=== PATIENT | male | born 1950 | race Caucasian/White ===

== ENCOUNTER 2023-05-09 21:18 | Inpatient (IN) | payer MEDICARE, SELFPAY ==
[2023-05-09] VITALS (7 sets, daily range): BP systolic 104–143; BP diastolic 51–74; BMI 41.7; BMI 40.5
[2023-05-09 17:32] LABS: % Basophils 0.4 % (0-2); % Eosinophils 1.2 % (0-6); % Immature Granulocytes 0.7 % (0-0.5); % Lymphocytes 12.5 % (20.5-51.1); % Monocytes 8.3 % (1.7-9.3); % Neutrophils 76.9 % (42.2-75.2); Absolute Eosinophils 0.1 10^3/uL (0-0.7); Absolute Immature Granulocytes 0.1 10^3/uL (0-0.05); Absolute Lymphocytes 1.3 10^3/uL (1.2-3.4); Absolute Monocytes 0.9 10^3/uL (0.1-0.6); Hematocrit 26.8 % (39.0-52.0); Hemoglobin 8.8 g/dL (13.0-18.0); Mean Corp Hgb Conc. 32.8 g/dL (33.0-37.0); Mean Corpuscular Hgb 27.4 pg (27.0-31.0); Mean Corpuscular Volume 83.5 fL (80.0-94.0); Mean Platelet Volume 8.5 fL (7.4-10.4); Nucleated Red Blood Cells % 0 % (-); Platelet Count 261 10^3/uL (130-400); Red Blood Cell Count 3.21 10^6/uL (4.70-6.10); Red Cell Dist. Width 14.8 % (11.5-14.5); White Blood Cell Count 10.4 10^3/uL (4.8-10.8)
[2023-05-09 17:47] LABS: ALT (SGPT) 18 U/L (0-50); AST (SGOT) 27 U/L (17-59); Albumin 3.4 g/dl (3.5-5.0); Alkaline Phosphatase 96 U/L (38-126); Blood Urea Nitrogen 22 mg/dl (9-20); Calcium 8.8 mg/dl (8.4-10.2); Carbon Dioxide 26 mmol/L (22-30); Chloride 100 mmol/L (98-107); Estimated Creatinine Clearance 98 ml/min; Glucose 105 mg/dl (70-99); Sodium 135 mmol/L (135-145); Total Protein 6.2 g/dl (6.3-8.2); eGFR > 60.00
[2023-05-09] MEDS: TYLENOL 650 MG PO (18:18)
--- NOTE | 2023-05-09 18:22 | ED.GENMED ---
History of Present Illness
General
Chief Complaint: Fall
Source: patient and family
Exam Limitations: none
Time Seen by Provider: 05/09/23 17:57
Nursing documentation reviewed up to this point in time: agreed with
Travel History
Have you had any contact with someone who has COVID-19?: No
Do you have any symptoms of coronavirus? Fever > 100 degrees, chills, cough, shortness of breath, sore throat, loss of taste or smell, muscle aches, or headache?: No
History of Present Illness
History of Present Illness:
72-year-old male presents with multiple issues, he has A-fib he is on Eliquis few weeks ago underwent bilateral knee replacement at orthopedics, was admitted then went to [facility] rehab was doing okay recovering slowly does have home PT
apparently possibly injured his knee yesterday with aggressive PT, today felt weak went down to his knees, no head strike prior to that he took tramadol and Flexeril as prescribed had been using very much of it, family is worried about his level of
confusion they state he looks short of breath or concerned about caring for him at home and think that he may require rehab again no fevers no drainage from his wounds,
Past History
Past History
ED Past Medical History: Arrthythmia
ED Past Surgical History: Orthopedic
Social History
Tobacco: Non-smoker
Alcohol: None
Drug: None
Personal:
Living: with family
Employment: Retired
Review of Systems
Review of Systems
All Other Systems: Not applicable
Constitutional: Denies fever or fatigue
EENT: Reports no symptoms
Respiratory: Reports trouble breathing
Cardiac: Reports no symptoms
ABD/GI: Reports no symptoms
: Reports frequency and incontinence
Musculoskeletal: Reports joint pain
Neurological: Reports weakness
Endocrine: Reports no symptoms
Phy Exam
Physical Exam
Physical Exam:
Physical Exam
General: 72 male nontoxic-appearing
Neck: No tongue bite, no posterior
Heart: Regular with soft murmur
Lungs: Bibasilar
Abdomen: Nontender
Neuro: alert and oriented
Skin: no rash
Psychiatric: Cooperative
Extremities: Bilateral knees surgical sites clean dry and intact mild swelling no open wounds is able to flex and extend his knee
Course
Orders/Labs/Results
Orders:
Orders
05/09/23 17:23
CMP [Comprehensive Metabolic Panel] Urgent
Complete Blood Count/With Diff Urgent
NT-proBNP Urgent
Comment: ADD ON
05/09/23 18:08
CT Head W/o Iv Contrast Urgent
Comment:
Reason For Exam: confusioni [email or web address]
CR Chest - 2 Views Urgent
Comment:
Reason For Exam: sob
Knee, Left 1 or 2 Views [CR Knee - Left 1 Or 2 Views] Urgent
Comment:
Reason For Exam: fall
Knee, Right 1 or 2 Views [CR Knee - Right 1 Or 2 Views] Urgent
Comment:
Reason For Exam: fall
05/09/23 18:09
Add On- LAB Urgent
Tests Added?: pbnp
Electrocardiogram (*1) Urgent
Reason for Study: Palpitations
EKG- Treatment ONCE
Acetaminophen [Tylenol] 650 mg PO NOW STA
05/09/23 19:03
Urinalysis Reflex To Culture Urgent
Date Specimen was Collected: 05/09/23
Time Specimen was Collected: 18:50
Urine Microscopic Reflex Cult Urgent
Urine Culture Urgent
AIDE Source: U
Specimen Description:
Date Specimen was Collected: 05/09/23
Time Specimen was Collected: 18:50
05/09/23 19:46
Bumetanide [Bumex] 1 mg IV NOW STA
03/09/24 19:49
Case Management Consult ONCE
Case Management Consult: Discharge Planning
05/10/23 06:00
Physical Therapy Consult [Pt Eval And Treat] IN AM
Activity Level: Out of Bed-Early Mobility
Abnormal Lab Results
05/09/23 05/09/23
17:23 19:03
RBC 3.21 L 10^6/uL
(4.70-6.10)
Hgb 8.8 L g/dL
(13.0-18.0)
Hct 26.8 L %
(39.0-52.0)
MCHC 32.8 L g/dL
(33.0-37.0)
RDW 14.8 H %
(11.5-14.5)
Abs Immat Gran (auto) 0.1 H 10^3/uL
(0-0.05)
Absolute Neuts (auto) 8.0 H 10^3/uL
(1.4-6.5)
Absolute Monos (auto) 0.9 H 10^3/uL
(0.1-0.6)
Immature Gran % 0.7 H %
(0-0.5)
Neutrophils % 76.9 H %
(42.2-75.2)
Lymphocytes % 12.5 L %
(20.5-51.1)
BUN 22 H mg/dl
(9-20)
Glucose 105 H mg/dl
(70-99)
Total Protein 6.2 L g/dl
(6.3-8.2)
Albumin 3.4 L g/dl
(3.5-5.0)
Urine Ketones Trace A
(Negative)
Ur Occult Blood Reflex 2+ A
(Negative)
Urine Bilirubin 1+ A
(Negative)
Urine Urobilinogen 2+ A
(Neg - 1+)
Leukocyte Esterase Rfl 1+ A
(Negative)
05/09/23 17:23
05/09/23 17:23
Vital Signs
Initial and Last Documented VS:
Initial Vital Signs
Temp Pulse Resp BP Pulse Ox
98.2 F 78 18 131/74 99
05/09/23 17:08 05/09/23 17:08 05/09/23 17:08 05/09/23 17:08 05/09/23 17:08
Last Documented Vital Signs
Temp Pulse Resp BP Pulse Ox
98.2 F 77 18 136/71 98
05/09/23 17:08 05/09/23 19:45 05/09/23 19:45 05/09/23 18:00 05/09/23 19:30
MDM/Problems Addressed
Differential Diagnosis Includes:
Deconditioning, occult fracture UTI stroke symptomatic anemia heart failure
MDM/Problems Addressed:
Trouble walking
Chronic conditions affecting care: Arrhythmia
Acute Exacerbation and/or Progression of Chronic Illness:
Orthopedic surgery
Acute Exacerbation and/or Progression of Chronic Illness: Arrhythmia
*Radiology
Radiology exam reviewed: preliminary read by ED provider
*Pulse Oximetry
Patient hypoxic: no
*Critical Care Note
Total Time (30-74mins, 75-104mins- exclusive of procedures): Not Applicable
Update Note
Update Note:
7:20 PM labs noted chest x-ray noted proBNP noted does have a murmur will give IV diuretic takes Bumex at home will admit will need PT and case management
7:45 PM labs reviewed with family clinical reviewed with family they state his baseline hemoglobin is 10 he goes to urology and cardiology at [facility], he has an appointment Thursday with Dr. Young from [facility]
ED Attending Note
-
Portions of this chart may have been created with voice recognition software.� Occasional wrong word or��sound alike� substitutions may have occurred due to the inherent limitations of voice recognition software.
Discharge Plan
Departure
Patient Disposition: Admit
Date of Disposition: 05/09/23
Time of Disposition: 19:19
Presentation/result/management discussed w/ accepting MD/DO: Hospitalist
Patient with high blood pressure during this ER visit?: Yes
Condition: Fair
Discharge Problem:
CHF (congestive heart failure)
Prescriptions:
No Action
multivitamin Tablet
1 tab PO DAILY
atorvastatin 10 mg tablet
10 mg PO QPM
valsartan 80 mg tablet
80 mg PO DAILY
omeprazole 40 mg capsule,delayed release(DR/EC)
40 mg PO DAILY
tramadol 50 mg tablet
50 mg PO Q6H PRN (Reason: moderate pain)
Patient Comments:
05/09/2023: last filled 08/20/22, 28 tabs for 7 days from [facility]
acetaminophen 500 mg Tablet
1,000 mg PO Q6H PRN (Reason: mild pain)
ascorbic acid (vitamin C) [Vitamin C] 500 mg Tablet
500 mg PO DAILY
tamsulosin 0.4 mg capsule
0.4 mg PO QPM
oxybutynin chloride 5 mg tablet extended release 24hr
5 mg PO QPM
bumetanide 1 mg tablet
1 mg PO DAILY
metoprolol succinate 25 mg tablet extended release 24 hr
25 mg PO DAILY
cyclobenzaprine 5 mg tablet
5 mg PO BID PRN (Reason: muscle spasms)
desvenlafaxine succinate 100 mg tablet extended release 24 hr
100 mg PO DAILY
Myrbetriq 50 mg tablet extended release 24 hr
50 mg PO QPM
Eliquis 5 mg tablet
5 mg PO BID
cranberry
2 tab PO BID
Referrals:
UNKNOWN - PT NOT,INTERVIEWE [Family Provider] -
Interventions
Interventions:
*Risk Screen - Suicide Last Done: 05/09/23 17:15
*General Assessment Last Done: 05/09/23 17:15
*Neglect/Abuse Screening Last Done: 05/09/23 17:15
*ED COVID-19 Vaccine History Last Done: 05/09/23 17:15
ED-Musculoskeletal Assessment Last Done: 05/09/23 17:16
ED- Neurological Assessment Last Done: 05/09/23 17:16
ED-Skin Assessment Last Done: 05/09/23 17:16
[2023-05-09 18:55] LABS: NT-proBNP 2150 pg/ml
[2023-05-09 19:35] LABS: Urine Albumin Trace (Neg - Trace); Urine Bilirubin 1+ (Negative); Urine Color Yellow; Urine Glucose Negative (Negative); Urine Ketone Trace (Negative); Urine Leukocyte 1+ (Negative); Urine Nitrite Negative (Negative); Urine Occult Blood 2+ (Negative); Urine Specific Gravity 1.015 (<1.030); Urine Urobilinogen 2+ (Neg - 1+)
[2023-05-09 19:36] LABS: Urine Character Slightly Cloudy (Clear)
--- NOTE | 2023-05-09 20:03 | HPS.HSE ---
Family Physician
-
Family Physician: INTERVIEWE UNKNOWN - PT NOT
Chief Complaint
-
Generalized weakness, shortness of breath and bilateral lower extremity edema
History of Present Illness
72-year-old male with known history of A-fib, congestive heart failure unknown type, hypertension, who had recently bilateral knee replaced in [facility] and was sent to rehab, look-alike today when he woke up he was feeling little
lousy according to the but patient said he was feeling at his usual self, at home physical therapy for his knee, according to the patient he may be was too aggressive today than the usual, shortly after he felt very weak and lousy and lethargic
and she described that he ran out of the fall and look like he buckle on his knee hitting both knees to the ground, denies any fever or chill or cough or congestion, admit is confirmed with the family short of breath worse with any kind of
exertional activity and have gross lower extremity edema he is wearing tight stocking and have more swelling around both knee and thigh especially around the right knee, also have some redness around the right knee which is according to the family
is new compared to earlier in the day and then awake.
Looks mildly confused and delirious but he takes Flexeril and tramadol earlier in the day.
Admits poor appetite and drink regular amount of fluid, and according to the family preoperatively his weight down to around 248 but now is running around 278.
In the ER given a dose of Bumex, and he never been here within of the baseline and the family does not know his baseline of blood work as well as CHF status. His hemoglobin around 8.8.
He is awake, alert answer question properly with some pauses claiming that sometime since her may not be 100% accurate. , daughter and [id number] at the bedside.
His condition discussed with the ER physician.
Medical History
Past Medical History
Past Medical History: Reports Other
Additional Past Medical History:
Past medical history reviewed:
Hypertension
A-fib
Urinary incontinence
Osteoarthritis status post recent bilateral knee replacement
CHF, unknown type
Ambulatory dysfunction
Obesity.
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
Past Surgical History: Reports Other
Social History
Unable to obtain full social history at this time due to: Other
Family History
Family History: Other
Allergies / Home Medications
Allergies reflects when Allergies were last updated in [facility].
Home Medications with original date entered in [facility]
Allergy/Medication List:
Allergies
Allergy/AdvReac Type Severity Reaction Status Date / Time
clindamycin Allergy Rash Verified 05/09/23 17:07
Penicillins Allergy Rash Verified 05/09/23 17:07
Home Medications
acetaminophen 500 mg tablet 1,000 mg PO Q6H PRN mild pain 05/09/23
apixaban 5 mg tablet (Eliquis) 5 mg PO BID 05/09/23
ascorbic acid (vitamin C) 500 mg tablet (Vitamin C) 500 mg PO DAILY 05/09/23
atorvastatin 10 mg tablet 10 mg PO QPM 05/09/23
bumetanide 1 mg tablet 1 mg PO DAILY 05/09/23
cranberry 2 tab PO BID 05/09/23
cyclobenzaprine 5 mg tablet 5 mg PO BID PRN muscle spasms 05/09/23
desvenlafaxine succinate 100 mg tablet,extended release 24 hr 100 mg PO DAILY 05/09/23
metoprolol succinate 25 mg tablet,extended release 24 hr 25 mg PO DAILY 05/09/23
mirabegron 50 mg tablet,extended release 24 hr (Myrbetriq) 50 mg PO QPM 05/09/23
multivitamin 1 tab PO DAILY 05/09/23
omeprazole 40 mg capsule,delayed release 40 mg PO DAILY 05/09/23
oxybutynin chloride 5 mg tablet,extended release 24 hr 5 mg PO QPM 05/09/23
tamsulosin 0.4 mg capsule 0.4 mg PO QPM 05/09/23
tramadol 50 mg tablet 50 mg PO Q6H PRN moderate pain 05/09/23
valsartan 80 mg tablet 80 mg PO DAILY 05/09/23
Review of Systems
-
A 12 point ROS was completed and negative except as noted: Yes
Physical Exam
Vital Signs
Vital Signs
Temp Pulse Resp BP Pulse Ox
98.2 F 77 18 136/71 98
05/09/23 17:08 05/09/23 19:45 05/09/23 19:45 05/09/23 18:00 05/09/23 19:30
Physical exam:
General: Lethargic, mildly confused and delirious but oriented x3, not in distress and holds appropriate conversation.
HEENT: No active discharge, ecchymosis or bruising, moist lips, tongue and mucous membrane.
Eyes: No discharge or red conjunctiva, no nystagmus, pupils are reactive and equal
Neck:Supple, no JVD no bruit no goiter.
Respiratory: Normal AP contour and diameter, normal chest wall movement, normal respiratory effort, no respiratory distress,
Lungs: Good air entry bilaterally, no wheezing or rhonchi, no rales or crackles
Heart: S1, S2 regular, normal rate, systolic murmur in upper borders
Gastrointestinal: Positive bowel sounds, soft, nontender, no guarding or rigidity or organomegaly
Musculoskeletal: Incision on both knee, both he looks little red and warm specially the right 1 the area of redness is bigger specially laterally with growth swelling and edema around both knees specially the right knee and both thighs.
, no chest wall abnormality or tenderness. All joints and extremities have good range of motion, no muscle tenderness or any joint swelling or tenderness.
Extremities: Gross lower extremities pitting edema, good peripheral pulses, good range of motion
Skin: Warm and dry, no ulceration, normal color.
Neurological: Mildly confused, and delirious but oriented x3, no facial droop,, speech clear and comprehensive, good muscle tone, normal sensory and motor function
Psychiatric: Normal mood, normal thought and judgment, normal affect,
Physical Exam
General: Other
Laboratory Results
-
05/09/23 17:23
05/09/23 17:23
Laboratory Results
Total Bilirubin 1.0 mg/dl (0.2-1.3) 05/09/23 17:23
AST 27 U/L (17-59) 05/09/23 17:23
ALT 18 U/L (0-50) 05/09/23 17:23
Alkaline Phosphatase 96 U/L (38-126) 05/09/23 17:23
Right knee x-ray:
AP and shoot through lateral views were performed.
There is a large amount of generalized soft tissue swelling. No subcutaneous emphysema. No radiopaque foreign body. No periosteal reaction. No radiographic evidence to suggest osteomyelitis.
Findings suggest small suprapatellar effusion.
Orthopedic hardware related to previous total knee replacement appears intact and well-seated.
However, superior positioning of the patella relative to the distal femur is noted (patellar tendon:patella ratio of 2.2), and there is linear osseous density at the inferior patellar margin. This raises the suspicion for patellar tendon
injury/avulsion, resulting in patella alexandro.
Regional osseous structures are otherwise intact..
Left knee x-ray:
Intact orthopedic hardware. No radiographic evidence of osteomyelitis. No radiographically demonstrable fracture.
Large amount of generalized soft tissue swelling, especially involving the anterior suprapatellar soft tissues. No subcutaneous emphysema. No radiopaque foreign body.
Findings suggest small suprapatellar effusion.
Head CT:
No acute intracranial hemorrhage or extra-axial collection. Minor chronic microvascular white matter ischemic change. Mild to moderate cerebral and cerebellar atrophy.
Chest x-ray:Findings suggest possibility of mild congestive heart failure with mild vascular congestion and trace effusion.
Data Reviewed
-
Diagnostic Radiology: Image Personally Visualized and interpreted, Discussed with Physician, Discussed with Patient and Discussed with Family
Lab Data: Labs Reviewed by me, Discussed with Physician, Discussed with Patient and Discussed with Family
Old Records: Reviewed
Impression/Plan
-
IMPRESSION:
72-year-old male who recently had bilateral knee replacement, brought in for evaluation of generalized weakness, and have a mechanical fall earlier on his knee as he said he was very weak and he buckled up, concern for cellulitis around both knee
especially the right 1 while CHF exacerbation appreciated as well as hemoglobin around 8.8 we do not know the baseline,-patient denies any changes stool color or bleeding event.
Generalized weakness: Possible multifactorial including CHF, anemia, concern for cellulitis while been overworked today with physical therapy could be possibilities.
Acute on chronic CHF exacerbation, not knowing what type
Weight gain more than 30 pounds after the surgery
Anemia would not show up to baseline hemoglobin no changes stool color according to the patient
Gross lower extremity edema
Generalized weakness
Concern for bilateral knee cellulitis specially the right knee, possibly may be triggered by recent knee replacement edema
A-fib anticoagulated with Eliquis
Hypertension
Obesity
Plans:
Manage procedure protocol
Cardiac monitoring
Check BNP and EKG they were ordered and pending
Follow cardiac enzymes
IV Bumex 2 mg IV twice daily six 1 mg daily
Daily weight intake and output
Recheck lab
Echo, according to the family from the knowledge the last time an echo was 3 years ago
-Need to get records from cardiology, primary and baseline blood work
Get iron panel, B12 folic acid
Acute blood stool
There is no evidence of bleeding we will continue his Eliquis until the picture clears up.
Will cover with vancomycin pharmacy dose for concern of cellulitis of the both knee area especially the right side,
ID consulted
Blood culture
Continue valsartan, Toprol
Tramadol and muscle relaxant
Fall precaution
Get a PT OT
All discussed with the patient and the family in detail
CODE STATUS full code
DVT prophylaxis Eliquis
[2023-05-09] MEDS: BUMEX 1 MG IV (20:10)
[2023-05-09 20:22] LABS: Urine Amorphous Seen; Urine Mucus Many; Urine Squamous Cell >30 /LPF (Few)
[2023-05-09 20:23] LABS: Urine Bacteria Many (Negative); Urine White Cell >100 /HPF (0-5)
[2023-05-09 20:25] LABS: Urine Urothelial Cell 16-20 /LPF (FEW)
--- NOTE | 2023-05-09 22:06 | PHA.VAN.IN ---
Assessment
- Assessment
Renal Function: Unknown baseline
AUC Dosing Plan
- Dosing Variables
Dosing Weight (kg): 124.5
Dosing CrCl (ml/min): 97
Vd coefficient (L/kg): 0.5
- Empiric Dosing
Initial / Loading Dose: Vancomycin 2000mg IV administration pending
Maintenance Regimen: Vancomycin 1250mg IV Q12h at 0600,1800- will start tomorrow at 1000
Estimated AUC (mcg*h/mL): 493
Estimated Peak (mcg*h/mL): 31.4
Estimated Trough (mcg/ml): 12.3
Estimated Half Life (H): 8.2
- Monitoring
No levels ordered at this time: Will f/u and order levels prior to steady state.
Pharmacokinetics Vancomycin I
- -
Patient Age: 72
Patient Sex: Male
Vancomycin Day #: 1
Indication: Skin And Soft Tissue
Requesting Provider: Dr. Koehler
Pertinent Antimicrobial Allergies:
Penicillins Allergy (Verified 05/09/23 17:07)
Rash
clindamycin Allergy (Verified 05/09/23 17:07)
Rash
Height / Weight:
Height 5 ft 9 in
Actual Weight 128 kg
Pertinent Past Medical History: BMI ~41, recent bilateral knee replacement
- Vital Signs / Lab Results
Temp Pulse Resp BP Pulse Ox
98.2 F 80 20 104/53 99
05/09/23 17:08 05/09/23 21:00 05/09/23 21:00 05/09/23 21:00 05/09/23 21:00
Lab Results - Hematology
05/09/23
17:23
WBC 10.4
Lab Results - Chemistry
05/09/23
17:23
BUN 22 H
Creatinine 0.9
Estimated Creat Clear 98
Albumin 3.4 L
Lab Results - Urine
05/09/23
19:03
Urine Nitrite (Reflex) Negative
Leukocyte Esterase Rfl 1+ A
Urine WBC (Reflex) >100 A
Ur Squamous Epith Cells >30
Urine Bacteria (Reflex) Many A
[2023-05-09 22:18] LABS: Troponin I < 0.012 ng/ml
--- NOTE | 2023-05-09 22:56 | CON.CAR ---
Consultation
Consultation Request
Date/Time Consultation Requested: 05/09/2023 18: 00
Date/Time Consultation Performed: 05/09/2023 20: 15
Requesting Provider: Zakia
Performing Provider: Willis
Reason for Consultation: CHF
Medical History
-
Chief Complaint: Status post fall with generalized weakness and shortness of breath
History of Present Illness:
Edouard has a history of permanent atrial fibrillation on chronic Eliquis followed by Dr. Vuong at [facility] as his works at [employer]. He has history of heart failure in January 2019. He has a history of Tang's with GERD and
hypertension. He had a stress test done prior to undergoing bilateral total knee replacement surgery on 04/14/[address] Young. He reports his stress test was 'okay'.
He initially was in rehab at [facility] near [facility]. He has been home for over a week. He was walking in his condo with some dyspnea on exertion but doing okay. Today he had difficulty walking on her right leg and fell to the
ground. In the ER he was noted to be in acute CHF and was admitted for weakness as well as treatment of CHF. Of note he has gained 17 pounds since his knee replacement surgery. He also has noted increasing lower extremity edema. He denies any
chest pain. He last reports an echo approximately 2 or 3 years ago
Past Medical History
Past Medical History: Arrhythmias (Permanent atrial fibrillation on Eliquis status post unsuccessful cardioversion followed by Dr. Vuong at [facility]), CHF (CHF in January 2019), GERD (With Tang's esophagus) and Other (Urinary incontinence,
osteoarthritis, obesity)
Past Surgical History: Orthopedic (Bilateral total knee replacement surgery by Dr. Young on 04/14/2023) and Other
Social History
Tobacco: Non-Smoker (Stop smoking in 2018)
Alcohol: None (No alcohol in the past 6 months)
Drug: None
Personal:
Living: With Family
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
Family History
Family History: Other (There is no family history of premature coronary artery disease)
Allergies / Home Medications
Allergy/AdvReac Type Severity Reaction Status Date / Time
clindamycin Allergy Rash Verified 05/09/23 17:07
Penicillins Allergy Rash Verified 05/09/23 17:07
Medication Instructions Recorded Confirmed Type
acetaminophen 500 mg tablet 1,000 mg PO Q6H PRN mild pain 05/09/23 05/09/23 History
apixaban 5 mg tablet (Eliquis) 5 mg PO BID Blood Clot 05/09/23 05/09/23 History
Prevention/Tx
ascorbic acid (vitamin C) 500 mg 500 mg PO DAILY Supplement 05/09/23 05/09/23 History
tablet (Vitamin C)
atorvastatin 10 mg tablet 10 mg PO QPM High Cholesterol 05/09/23 05/09/23 History
bumetanide 1 mg tablet 1 mg PO DAILY Fluid 05/09/23 05/09/23 History
Retention/Swelling
cranberry 2 tab PO BID Supplement 05/09/23 05/09/23 History
cyclobenzaprine 5 mg tablet 5 mg PO BID PRN muscle spasms 05/09/23 05/09/23 History
desvenlafaxine succinate 100 mg 100 mg PO DAILY Mental 05/09/23 05/09/23 History
tablet,extended release 24 hr Health/Anxiety
metoprolol succinate 25 mg 25 mg PO DAILY Heart 05/09/23 05/09/23 History
tablet,extended release 24 hr Disease/Condition
mirabegron 50 mg tablet,extended 50 mg PO QPM Urinary Issue 05/09/23 05/09/23 History
release 24 hr (Myrbetriq)
multivitamin 1 tab PO DAILY Supplement 05/09/23 05/09/23 History
omeprazole 40 mg capsule,delayed 40 mg PO DAILY Gastrointestinal 05/09/23 05/09/23 History
release Issue
oxybutynin chloride 5 mg 5 mg PO QPM Urinary Issue 05/09/23 05/09/23 History
tablet,extended release 24 hr
tamsulosin 0.4 mg capsule 0.4 mg PO QPM Urinary Issue 05/09/23 05/09/23 History
tramadol 50 mg tablet 50 mg PO Q6H PRN moderate pain 05/09/23 05/09/23 History
valsartan 80 mg tablet 80 mg PO DAILY Blood Pressure 05/09/23 05/09/23 History
Review of Systems
-
History Source: Patient
All other systems: Negative unless noted
Constitutional: Weight Loss (He lost 42 pounds with diet prior to knee replacement surgery but gained 17 pounds since knee surgery)
EENT: No Symptoms
Respiratory: Trouble Breathing
Cardiac: No Symptoms
Abdomen/GI: No Symptoms
: No Symptoms
Musculoskeletal: Other (Right leg pain with fall earlier today)
Skin: No Symptoms
Neurological: Weakness
Endocrine: No Symptoms
Hematologic/Lymphatic: No Symptoms
Physical Exam
Vital Signs
Temp Pulse Resp BP Pulse Ox
98.1 F 79 20 105/51 98
05/09/23 22:00 05/09/23 22:00 05/09/23 22:00 05/09/23 22:00 05/09/23 22:00
Lab Results
05/09/23 17:23
05/09/23 17:23
Troponin I < 0.012 ng/ml 05/09/23 21:47
Yea-H-Chxxqcyfxra Pept 2150 pg/ml 05/09/23 17:23
General: Well developed, well nourished in NAD.
Neck: Supple, no JVD, HJR, carotids +2 B/L, no bruits bilaterally.
Heart: Non displaced PMI, irregular, no murmurs, No S3, S4, no rubs.
Lungs: Scattered rhonchi
Abdomen: Normal bowel sounds, soft, non-tender, non-distended.
Extremities: Moderate bilateral lower extremity edema
Neuro: Grossly nonfocal, awake, alert and oriented x3.
Impression / Plan
-
Loftsman/Woman: Dr. Vuong at [facility]
Impression:
Acute diastolic CHF
ADL dysfunction status post bilateral total knee replacement surgery on 04/14/2023
History of hypertension
History of permanent A-fib on chronic Eliquis followed by Dr. Vuong at [facility]
Urinary incontinence
Anemia
Stress test 2023: Normal per patient
Plan:
He presents with evidence of CHF. He has gained 17 pounds since his operation although unclear how much his knee prostheses weigh
Will continue with IV Lasix and assess response
Check echocardiogram
Obtain records from [facility]
He will need physical therapy and possibly rehab and is recovering from bilateral knee replacements
Data Reviewed
-
EKG: Tracing Personally Visualized and interpreted
Radiology: Report Reviewed by me
Medical Tests (Nuc Med, Echo etc): Report Reviewed by me
Labs: Labs Reviewed by me
Old Records: Reviewed
[2023-05-10] VITALS (7 sets, daily range): BP systolic 95–116; BP diastolic 47–60; PULSE 85; O2SAT 97; BMI 40.4
[2023-05-10] MEDS: VANCOCIN 540 MG IV (00:16)
[2023-05-10] MEDS: TYLENOL 1000 MG PO ×2 (04:06→20:36)
[2023-05-10 05:46] LABS: Blood Urea Nitrogen 17 mg/dl (9-20); Calcium 8.1 mg/dl (8.4-10.2); Carbon Dioxide 28 mmol/L (22-30); Chloride 103 mmol/L (98-107); Estimated Creatinine Clearance 109 ml/min; Glucose 102 mg/dl (70-99); Magnesium 1.8 mg/dl (1.6-2.3); Potassium 3.8 mmol/L (3.5-5.1); Sodium 133 mmol/L (135-145); eGFR > 60.00
[2023-05-10 05:51] LABS: Troponin I < 0.012 ng/ml
[2023-05-10 05:55] LABS: Total Iron Binding Capacity 262 ug/dl (261-462)
[2023-05-10 06:24] LABS: TSH Reflex To Free T4 2.15 uIU/ml (0.47-4.68)
[2023-05-10 07:10] LABS: Folate 14.2 ng/ml (2.76-20); Vitamin B12 615 pg/ml (239-931)
--- NOTE | 2023-05-10 07:33 | W.PN.HOSP.TC ---
Addendum entered and electronically signed by Penny Gorman MD 05/10/23 17:42:
JODY
-continue bedtime CPAP
Original Note:
Today's Communication/Plan
-
cont diuretics empiric abx
right knee immobilizer
transfer to [facility] when bed available, Dr Leo hospitalist service accepting with orhopedic service consulting.
Patient being transferred due to right patellar tendon rupture recent knee replacement, needs further evaluation/treatment by surgeon who performed his replacement
Assessment / Plan
Assessment / Plan
Physical exam:
General: No acute distress appears comfortable at this time
HEENT: PERRLA normocephalic atraumatic moist mucus membrane
Neck:Supple, no JVD no bruit no goiter.
Respiratory: Clear to auscultation bilateral
Heart: S1, S2 irregular irregular
Abd: soft nontender bowel sounds present
Extremities: b/l knees swollen some ballotable effusions noted mild erythema, lower ext edema +1
Skin: Warm and dry, no ulceration, normal color.�
Neurological: AOx3
Psychiatric: Calm cooperative
72-year-old male who recently had bilateral knee replacement, brought in for evaluation of generalized weakness, and have a mechanical fall earlier on his knees as he said he was very weak and he buckled up, concern for cellulitis around both knee
especially the right 1 concern CHF exacerbation and anemia hemoglobin 8.8.
Generalized weakness: Possible multifactorial including CHF, anemia, concern for cellulitis and UTI
Acute on chronic CHF exacerbation, not knowing what type
Weight gain more than 30 pounds after the surgery
Anemia of chronic disease and mild iron def
A-fib anticoagulated with Eliquis
Hypertension
Obesity
Plans:
Acute on Chronic HF unspecified type
Cardiac monitoring
BNP 2150
Trop neg x 3
IV Bumex 2 mg IV twice daily six 1 mg daily
Daily weight intake and output
ECHO pending
Cardio eval appreciated
Recent Bilateral Knee replacements
-Right Knee Patellar Tendon rupture noted on knee XR confirmed by orthopedic evaluation
-Right knee weight bearing as tolerated with knee immobilizer as per orthopedic
-Orthopedic eval appreciated patient recommended to return to [facility] for further evaluation/treatment by surgeon who performed his replacements. Accepted for Transfer [facility] under the care of Dr Leo hospitalist service
with Orthopedic service consulting. Discussed with patient and his who are in agreement and consent to transfer
Anemia of Chronic disease, mild Iron def
-H&H stable
-Iron supplementation started
-B12 folic acid wnl
Possible Cellulits knee, UTI
Pyruria
ID consult appreciated cont empiric vanc, start cefipime
Follow urine Blood cultures
HTN
Continue valsartan, Toprol
Tramadol and muscle relaxant
Fall precaution
CODE STATUS full code
DVT prophylaxis Eliquis
discussed with patient, his , orthopedic, infectious disease, cardiology
I spent a total of 60 minutes with the patient or on the floor. More than 50% of this time involved counseling and coordination of care.
Anticipated Discharge: Today
Subjective/Interval History
-
Date of Service: May 10, 2023
No acute distress resting comfortably in bed. Reports improved mobility lower extremity. Pain controlled with current regimen. Noted 8 lb weight loss noted since yesterday following start of diuresis. Low grade fever noted. Denies shortness of
breath
Objective Data
-
Labs:
Laboratory Results
05/10/23
05:05
Sodium 133 L
Potassium 3.8
Chloride 103
Carbon Dioxide 28
BUN 17
Creatinine 0.8
Glucose 102 H
Calcium 8.1 L
Vital Signs:
Vital Signs
Temp Pulse Resp BP Pulse Ox
99.5 F 79 20 114/54 95
05/10/23 03:00 05/10/23 03:00 05/10/23 03:00 05/10/23 03:00 05/10/23 03:00
I&O
05/09/23 05/10/23 05/11/23
05:59 06:59 06:59
Intake Total
Output Total
Balance
[2023-05-10] MEDS: PRISTIQ 100 MG PO (08:44)
[2023-05-10] MEDS: VITAMIN C 500 MG PO (08:44)
[2023-05-10] MEDS: PROTONIX 40 MG PO (08:44)
[2023-05-10] MEDS: ELIQUIS 5 MG PO ×2 (08:44→20:36)
[2023-05-10] MEDS: DIOVAN 80 MG PO (08:44)
[2023-05-10] MEDS: TOPROL XL 25 MG PO (08:44)
[2023-05-10] MEDS: BUMEX 2 MG IV ×2 (08:45→15:48)
[2023-05-10] MEDS: VANCOCIN 275 MG IV ×2 (08:46→20:35)
[2023-05-10 10:03] LABS: Iron 31 ug/dl (49-181); Percent Saturation 11 % (20-50)
--- NOTE | 2023-05-10 11:02 | PHA.VAN.FU ---
Vancomycin Assessment / Plan
- Assessment
Renal Function: Stable
In the past 24 hrs, patient has been: Afebrile
Concomitant Antimicrobials: none
- Dosing Plan
Continue: vancomycin 1250 mg q12h
- Monitoring Plan
No level(s) ordered at this time: consider levels after 4th maint. dose (Thursday vesna dose)
- Follow Up
Pharmacy will continue to follow.
Vancomycin Follow UP
- -
Patient Age: 72
Patient Sex: Male
Vancomycin Day #: 2
Indication: Skin And Soft Tissue
Requesting Provider: Dr. Koehler
Pertinent Antimicrobial Allergies:
Penicillins Allergy (Verified 05/09/23 17:07)
Rash
clindamycin Allergy (Verified 05/09/23 17:07)
Rash
Height / Weight:
Height 5 ft 9 in
Actual Weight 124.029 kg
Pertinent Past Medical History: BMI ~41, recent bilateral knee replacement
- Vital Signs / Lab Results
Temp Pulse Resp BP Pulse Ox
100.3 F 75 18 116/60 94
05/10/23 07:00 05/10/23 07:00 05/10/23 07:00 05/10/23 07:00 05/10/23 07:00
Lab Results - Hematology
05/09/23
17:23
WBC 10.4
Lab Results - Chemistry
05/09/23 05/10/23
17:23 05:05
BUN 22 H 17
Creatinine 0.9 0.8
Estimated Creat Clear 98 109
Albumin 3.4 L
Lab Results - Urine
05/09/23
19:03
Urine Nitrite (Reflex) Negative
Leukocyte Esterase Rfl 1+ A
Ur Squamous Epith Cells >30
[2023-05-10 11:18] LABS: Hematocrit 26.3 % (39.0-52.0); Hemoglobin 8.8 g/dL (13.0-18.0); Mean Corp Hgb Conc. 33.5 g/dL (33.0-37.0); Mean Corpuscular Hgb 27.1 pg (27.0-31.0); Mean Corpuscular Volume 80.9 fL (80.0-94.0); Mean Platelet Volume 9.1 fL (7.4-10.4); Platelet Count 284 10^3/uL (130-400); Red Blood Cell Count 3.25 10^6/uL (4.70-6.10); Red Cell Dist. Width 14.8 % (11.5-14.5); White Blood Cell Count 7.3 10^3/uL (4.8-10.8)
[2023-05-10 11:31] LABS: Troponin I < 0.012 ng/ml
--- NOTE | 2023-05-10 12:09 | CM ---
Met with patient and at bedside; initial assessment and case management consult completed
Pharmacy verified: [facility]
Patient lives with his in a one floor condo; bath has walk-in shower stall and a tub with shower
PLOF: recently discharged from rehab with home PT services; provides assistance with ADLs; no longer drives
DME: rolling walker; commode
Transportation: will need ambulance transport
Plan: discharge to SNF when medically stable and insurance authorization approved;
list of facilities provided; preferences are [facility], [facility], and [facility]
referrals sent via [facility]
--- NOTE | 2023-05-10 12:54 | W.PN.CARDCBS ---
Today's Communication / Plan
-
Continue IV Lasix and possibly increase dose
Check echo
Get records from [facility]
Impression / Plan
-
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 Vuong at [facility]
Impression:
Acute diastolic CHF
ADL dysfunction status post bilateral total knee replacement surgery on 04/14/2023
History of hypertension
History of permanent A-fib on chronic Eliquis followed by Dr. Vuong at [facility]
Urinary incontinence
Anemia
Stress test 2023: Normal per patient
Plan:
Minimal response to IV Lasix so far and may need to increase dose.
He has gained 17 pounds since his operation although unclear how much his knee prostheses weigh
Will continue with IV Lasix and assess response
Check echocardiogram
Obtain records from [facility]
He will need physical therapy and possibly rehab and is recovering from bilateral knee replacements
Discussed with at bedside
Progress Note - Melt Down Furnace Operator
Subjective
Date of Service: May 10, 2023
No complaints
Objective
Labs:
05/10/23 10:55
05/10/23 05:05
Labs
Hgb 8.8 g/dL (13.0-18.0) L 05/10/23 10:55
Hct 26.3 % (39.0-52.0) L 05/10/23 10:55
Plt Count 284 10^3/uL (130-400) 05/10/23 10:55
Sodium 133 mmol/L (135-145) L 05/10/23 05:05
Potassium 3.8 mmol/L (3.5-5.1) 05/10/23 05:05
BUN 17 mg/dl (9-20) 05/10/23 05:05
Creatinine 0.8 mg/dL (0.7-1.3) 05/10/23 05:05
Glucose 102 mg/dl (70-99) H 05/10/23 05:05
Troponins
05/09/23 05/10/23 05/10/23
21:47 05:05 10:55
Troponin I < 0.012 < 0.012 < 0.012
Vital Signs and I&O:
Vital Signs
Temp Pulse Resp BP Pulse Ox
98.7 F 82 18 99/47 95
05/10/23 11:00 05/10/23 11:00 05/10/23 11:00 05/10/23 11:00 05/10/23 11:00
Vital Signs
Temp Pulse Resp BP Pulse Ox
98.7 F 82 18 99/47 95
05/10/23 11:00 05/10/23 11:00 05/10/23 11:00 05/10/23 11:00 05/10/23 11:00
Intake & Output
05/08/23 05/09/23 05/10/23 05/11/23
05:59 05:59 06:59 06:59
Intake Total
Output Total
Balance
Physical Exam
Physical Exam
General: Well developed, well nourished in NAD.
Neck: Supple, no JVD, HJR, carotids +2 B/L, no bruits bilaterally.
Heart: Non displaced PMI, irregular, no murmurs, No S3, S4, no rubs.
Lungs: Scattered rhonchi
Extremities: No clubbing, cyanosis or edema bilaterally.
Neuro: Grossly nonfocal, awake, alert and oriented x3.
--- NOTE | 2023-05-10 13:59 | CON.ID ---
Consultation
-
Date/Time Consultation Requested: 05/09/2023 2131
Date/Time Consultation Performed: 05/10/2023 1330
Requesting Provider: Dr. Koehler
Performing Provider: Dr. Baez
Reason for Consultation: Right knee cellulitis
Chief Complaint / Past History
History of Present Illness
Piotr Mary is a 72-year-old man being evaluated at the request of Dr. Koehler regarding right knee cellulitis and possible urinary tract infection. History was obtained from chart review, along with patient interview.
The patient underwent bilateral total knee replacement on 04/14/2023 at [facility]. He was discharged to rehab 2 days later, and was discharged last Thursday from rehab to home. He has been receiving home physical therapy since that
time. He notes that 2 days ago he had worked quite hard on range of motion of the right knee, but yesterday he felt quite weak and while he was walking with his walker, he went down on his knees on the floor. He reports that he did not strike the
floor, but rather lowered himself down gently.
Since yesterday, he has had discomfort in the medial right knee area. He also notes some swelling of the area. There has been no opening of the prior incisional areas or drainage.
The patient denies any fevers or chills. He denies any dysuria, hematuria or urinary urgency.
Past History
Additional Past Medical History:
Osteoarthritis
Obesity
A-fib
CHF
GERD
Additional Past Surgical History:
Bilateral knee replacement
Allergy History:
clindamycin Allergy (Verified 05/09/23 17:07)
Rash
Penicillins Allergy (Verified 05/09/23 17:07)
Rash
Medications Reviewed: Yes
Current Antibiotics:
Vancomycin
Social History
Tobacco: Former Smoker
Alcohol: Former
Drug: None
Personal:
Living: With Family
Employment: Employed
Review of Systems
Vital Signs
Temp Pulse Resp BP Pulse Ox
98.7 F 82 18 99/47 95
05/10/23 11:00 05/10/23 11:00 05/10/23 11:00 05/10/23 11:00 05/10/23 11:00
Physical Exam
Physical Exam
Constitutional: No Acute Distress, Comfortable, Non-toxic and Obese
Head: Normocephalic
Eyes: Pupils Equal, Pupils Round, No Conjunctival Hemorrhage and Sclera Anicteric
Oral: No Thrush and No Ulcers
Cardiovascular: S1/S2; Negative S3/S4 or Murmur
Pulmonary: Clear; Negative Wheezes, Rales or Rhonchi
Gastrointestinal: Soft, Non Tender and Non Distended
Extremities: Edema (3+ B/L LE's.) and Erythema (B/L knee area; R>L. (+) warmth. tenderness to palpation right knee medial area. Difficult to assess whether effusion is present or not.)
Skin: Warm and Dry; Negative Rash or Jaundice
Neurological: Awake, Alert and Oriented
Psychological: Calm
.
Lab / Diagnostic Study Results
05/10/23 10:55
05/10/23 05:05
Abs Immat Gran (auto) 0.1 10^3/uL (0-0.05) H 05/09/23 17:23
Absolute Neuts (auto) 8.0 10^3/uL (1.4-6.5) H 05/09/23 17:23
Absolute Lymphs (auto) 1.3 10^3/uL (1.2-3.4) 05/09/23 17:23
Absolute Monos (auto) 0.9 10^3/uL (0.1-0.6) H 05/09/23 17:23
Absolute Basos (auto) 0.0 10^3/uL (0-0.2) 05/09/23 17:23
Immature Gran % 0.7 % (0-0.5) H 05/09/23 17:23
Neutrophils % 76.9 % (42.2-75.2) H 05/09/23 17:23
Lymphocytes % 12.5 % (20.5-51.1) L 05/09/23 17:23
Monocytes % 8.3 % (1.7-9.3) 05/09/23 17:23
Eosinophils % 1.2 % (0-6) 05/09/23 17:23
Basophils % 0.4 % (0-2) 05/09/23 17:23
Ur Squamous Epith Cells >30 /LPF (Few) 05/09/23 19:03
Microbiology Results
Micro:
05/09/23 21:47 Blood Culture - Pending
Blood/Venous
05/09/23 19:03 Urine Culture - Pending
Urine
Imaging:
05/09/2023 X-ray right knee: Intact orthopedic hardware. There is a large amount of generalized soft tissue swelling. No evidence of osteomyelitis. Findings suggest small suprapatellar effusion. There is patella alexandro with suspicion for patellar
tendon injury or inferior patellar avulsion.
Assessment / Plan
Suspected urinary tract infection
Right knee pain following episode of weakness and fall onto knee.
Suspected right knee cellulitis vs reactive erythema
Recent B/L TKR
Osteoarthritis
Obesity
Arrhythmia
CHF
GERD
Recommendations:
Continue with vancomycin for the present. Given significant pyuria, will add cefepime for gram-negative coverage.
Right knee plain film noted to be abnormal. May consider Orthopedics evaluation and/or transfer back to patient's primary Ortho team.
Monitor white count and temperature curve.
Monitor right knee erythema clinically for improvement.
Care Review
Plan reviewed with: Physician (Hospitalist)
[2023-05-10] MEDS: STERILE WATER FOR INJECTION 10 ML IV (15:49)
[2023-05-10] MEDS: FEOSOL 325 MG PO (15:49)
[2023-05-10] MEDS: MAXIPIME 2000 MG IV (15:49)
--- NOTE | 2023-05-10 16:29 | RESPNOTE ---
Patient stated he only wears Cpap on an occasion, not every night. He refused to wear our machine and there is no one to bring in his own machine.
He staes he will be leaving tomorrow.
--- NOTE | 2023-05-10 16:38 | CON.ORTHO ---
Consultation - Orthopedics
History
Patient is a 72-year-old male with a history of A-fib on Eliquis, CHF, hypertension and a recent bilateral total knee replacement performed at [facility] last month who presented to the hospital after a fall. He states he has been
doing home physical therapy and feels he worked to yesterday. Today he took a fall and was unable to extend his right leg. He reports pain in his right knee with an inability to extend his knee. Imaging demonstrated a right knee patella alexandro. An
orthopedic surgery consultation was subsequently rendered. He denies any numbness or tingling his lower extremities. Denies any pain at his hips or ankles.
Allergies / Home Medications
Allergy/AdvReac Type Severity Reaction Status Date / Time
clindamycin Allergy Rash Verified 05/09/23 17:07
Penicillins Allergy Rash Verified 05/09/23 17:07
Medication Instructions Recorded
acetaminophen 500 mg tablet 1,000 mg PO Q6H PRN mild pain 05/09/23
apixaban 5 mg tablet (Eliquis) 5 mg PO BID Blood Clot 05/09/23
Prevention/Tx
ascorbic acid (vitamin C) 500 mg 500 mg PO DAILY Supplement 05/09/23
tablet (Vitamin C)
atorvastatin 10 mg tablet 10 mg PO QPM High Cholesterol 05/09/23
bumetanide 1 mg tablet 1 mg PO DAILY Fluid 05/09/23
Retention/Swelling
cranberry 2 tab PO BID Supplement 05/09/23
cyclobenzaprine 5 mg tablet 5 mg PO BID PRN muscle spasms 05/09/23
desvenlafaxine succinate 100 mg 100 mg PO DAILY Mental 05/09/23
tablet,extended release 24 hr Health/Anxiety
metoprolol succinate 25 mg 25 mg PO DAILY Heart 05/09/23
tablet,extended release 24 hr Disease/Condition
mirabegron 50 mg tablet,extended 50 mg PO QPM Urinary Issue 05/09/23
release 24 hr (Myrbetriq)
multivitamin 1 tab PO DAILY Supplement 05/09/23
omeprazole 40 mg capsule,delayed 40 mg PO DAILY Gastrointestinal 05/09/23
release Issue
oxybutynin chloride 5 mg 5 mg PO QPM Urinary Issue 05/09/23
tablet,extended release 24 hr
tamsulosin 0.4 mg capsule 0.4 mg PO QPM Urinary Issue 05/09/23
tramadol 50 mg tablet 50 mg PO Q6H PRN moderate pain 05/09/23
valsartan 80 mg tablet 80 mg PO DAILY Blood Pressure 05/09/23
Vital Signs / Lab Results
Temp Pulse Resp BP Pulse Ox
100.2 F 76 18 111/55 96
05/10/23 15:00 05/10/23 15:00 05/10/23 15:00 05/10/23 15:00 05/10/23 15:00
05/10/23 10:55
05/10/23 05:05
Review of systems: Negative otherwise as indicated in H&P
General: Awake, alert, oriented x3; no acute distress
Head: Normocephalic, atraumatic
Eyes: Conjunctiva normal, sclera anicteric
Throat: Airway intact, handling secretions
Neck: Trachea midline, supple
Lungs: Breathing comfortably no distress
Heart: Regular rate
GI: Soft, Non Tender, Non Distended
MSK- LLE: Slight swelling present at the left knee. Surgical incision appears to be healing appropriately. Range of motion of the knee is slightly diminished. However, patient is able to perform resisted extension of the left knee. TA/EHL/GSC
intact motor. Dorsalis pedis pulse 2+. Sensation intact at the left lower extremity grossly.
MSK-RLE: Swelling present at the right knee. Patella alexandro palpated. Patellar tendon defect palpable inferior to the patella. Surgical incision appears to be healing appropriately. Patient unable to perform straight leg raise or extension of the
right knee. TA/EHL/GSC intact motor. Dorsalis pedis pulse 2+. Sensation intact at the right lower extremity grossly.
Imaging:
X-rays of the left knee demonstrate an intact total knee prosthesis. Generalized soft tissue swelling present.
X-rays of the right knee demonstrate a total knee arthroplasty with patella alexandro. There is also an osseous density of the inferior margin of the patella which is suspicious for an avulsion injury.
Assessment / Plan
Assessment:
Right knee pain with an inability to extend knee, likely patellar tendon injury
Plan:
Knee immobilizer to right knee
Right lower extremity weight-bear as tolerated with knee immobilizer
Left lower extremity weight-bear as tolerated
Pain control
Patient needs to be sent to the operating physician so that the patellar tendon injury can be addressed
Continue DVT prophylaxis
Please call with questions
--- NOTE | 2023-05-10 17:43 | W.DCSUMMARY ---
Discharge Summary
Discharge Data
Date of Admission: 05/09/23
Date of Discharge: 05/10/23
-
Pending Results: Yes
Additional Pending Results:
official culture results
Hospital Course
72M who recently had bilateral knee replacement, brought in for evaluation of generalized weakness with associate mechanical fall earlier on his knees as he said he was very weak and he buckled up, concern for cellulitis around both knee especially
the right. Generalized weakness: Possible multifactorial including CHF, anemia, concern for cellulitis and UTI. Acute on chronic CHF exacerbation, unknown type, weight gain more than 30 pounds after the surgery. Anemia of chronic disease with
mild iron def. A-fib anticoagulated on Eliquis, BNP was noted elevated 2150. Trop neg x 3. Patient was treated with IV Bumex twice daily. Right Knee Patellar Tendon rupture noted on knee XR confirmed by orthopedic evaluation. Orthopedic further
recommended return to [facility] for further evaluation/treatment by surgeon who performed his replacements.� Accepted for Transfer [facility] under the care of Dr Leo hospitalist service with [facility].�
Discussed with patient and his who were in agreement and consented to transfer. Possible Cellulits knee, UTI, Pyruria, ID evaluated and recommended continuing empiric vanc and starting cefipime. Relatively stable, patient was transferred back
to [facility] for further evaluation treatment as above when bed became available.
Discharge Plan
-
Patient Disposition: Acute Care Hospital
Discharge Orders:
Discharge Patient (As Directed); Ordered 05/10/23
Ordered By: Penny Gorman
Discharge Date and Time
Discharge Date/Time: 05/11/23 02:09
[2023-05-10] MEDS: DETROL LA 4 MG PO (17:50)
[2023-05-10] MEDS: LIPITOR 10 MG PO (17:50)
[2023-05-10] MEDS: FLOMAX 0.400000000000000022 MG PO (17:50)
[2023-05-10] MEDS: DITROPAN 5 MG PO (17:52)
--- NOTE | 2023-05-10 19:29 | RESPNOTE ---
pt reiterated lack of need for cpap tonight
--- NOTE | 2023-05-10 23:28 | PTCARENOTE ---
Report provided to Parminder Lentz at [phone] to Jeronimo.
--- NOTE | 2023-05-11 01:53 | PTCARENOTE ---
Pt discharged via ambulance transport with stretcher.
== END 2023-05-11 02:09 | disposition short-term general hospital (02) | DRG 602 ==
LOC: 3 WEST ACU 21:18
PROVIDERS: ADMITTING PHYSICIAN Internal Medicine; ATTENDING PHYSICIAN Internal Medicine; CONSULT PHYSICIAN Internal Medicine Cardiovascular Disease; CONSULT PHYSICIAN Internal Medicine Infectious Disease; CONSULT PHYSICIAN Orthopaedic Surgery; EMERGENCY PHYSICIAN Emergency Medicine; FAMILY PHYSICIAN Internal Medicine
DX: L03.115 Cellulitis of right lower limb (principal); I50.31 Acute diastolic (congestive) heart failure; N39.0 Urinary tract infection, site not specified; I48.21 Permanent atrial fibrillation; Z68.41 Body mass index [BMI] 40.0-44.9, adult; I11.0 Hypertensive heart disease with heart failure; S76.111A Strain of right quadriceps muscle, fascia and tendon, initial encounter; R32 Unspecified urinary incontinence; M19.90 Unspecified osteoarthritis, unspecified site; D63.8 Anemia in other chronic diseases classified elsewhere; D50.9 Iron deficiency anemia, unspecified; K21.9 Gastro-esophageal reflux disease without esophagitis; G47.33 Obstructive sleep apnea (adult) (pediatric); W18.30XA Fall on same level, unspecified, initial encounter; Y93.89 Activity, other specified; Y92.9 Unspecified place or not applicable; K22.70 Barrett's esophagus without dysplasia; E66.9 Obesity, unspecified; R26.2 Difficulty in walking, not elsewhere classified; Z79.01 Long term (current) use of anticoagulants; Z96.653 Presence of artificial knee joint, bilateral; Z88.1 Allergy status to other antibiotic agents; Z88.0 Allergy status to penicillin; Z87.891 Personal history of nicotine dependence
CPT/HCPCS: 70450; 71046; 73560; 80048; 80053; 81003; 81015; 82607; 82728; 82746; 83540; 83550; 83735; 83880; 84100; 84443; 84484; 85025; 85027; 87040; 87086; 93005; 96374; 97162; 99285

== ENCOUNTER 2023-07-07 06:23 | Emergency (ER) | payer MEDICARE, SELFPAY ==
[2023-07-07] VITALS (7 sets, daily range): BP systolic 96–114; BP diastolic 54–62; BMI 39.1; BMI 40.7
--- NOTE | 2023-07-07 07:33 | ED.MUSCINJ ---
HPI-Injury
General
Chief Complaint: Musculo-Skeletal Complaint
Source: patient
Exam Limitations: none
Time Seen by Provider: 07/07/23 07:12
Travel History
Have you had any contact with someone who has COVID-19?: No
Do you have any symptoms of coronavirus? Fever > 100 degrees, chills, cough, shortness of breath, sore throat, loss of taste or smell, muscle aches, or headache?: No
History of Present Illness-Injury
Initial Injury comments:
72-year-old male presents after a fall he sustained last evening. He was going to the bathroom and fell and his knee gave out. He landed on his buttock did not hit his head. Takes [employer] for A-fib. In April of this year he had a bilateral
knee replaced. He fell a month following this and tore his patellar tendon. This was repaired in April. He has been in rehab. He was discharged from rehab 3 days ago and fell last evening. He is prone to UTIs. He notes weakness as well. No
fever. Denies back pain, fall. No other complaints at this time
Past History
Past History
ED Past Medical History: Arrthythmia
ED Past Surgical History: Orthopedic
Social History
Tobacco: Non-smoker
Alcohol: None
Drug: None
Personal:
Living: with family
Employment: Retired
Phy Exam
Physical Exam
Physical Exam:
General: Well-appearing male no acute respiratory distress HEENT: Normocephalic atraumatic
Heart: Regular rate and rhythm no murmurs
Lungs: Clear no wheeze or rales
Musculoskeletal exam: Right knee with effusion defect palpated along the path of the quadricep tendon. There is an effusion left knee nontender no defects no effusionSpine is nontender
Extremities: No cyanosis
Injury Course
Orders/Labs/Results
Orders:
Orders
07/07/23 07:31
CR Knee- Right 4 Or More View* Urgent
Comment:
Reason For Exam: fall
07/07/23 07:40
CR Knee - Left 4 Or More View* Urgent
Comment:
Reason For Exam: fall
07/07/23 08:02
Complete Blood Count/With Diff Urgent
Comprehensive Metabolic Panel Urgent
07/07/23 08:56
Knee Immobilizer Right-Treatme ONCE
07/07/23 10:08
Urinalysis Reflex To Culture Urgent
Date Specimen was Collected: 07/07/23
Time Specimen was Collected: 09:52
Urine Microscopic Reflex Cult Urgent
Abnormal Lab Results
07/07/23 07/07/23
08:02 10:08
RBC 4.23 L 10^6/uL
(4.70-6.10)
Hgb 10.0 L g/dL
(13.0-18.0)
Hct 31.5 L %
(39.0-52.0)
MCV 74.5 L fL
(80.0-94.0)
MCH 23.6 L pg
(27.0-31.0)
MCHC 31.7 L g/dL
(33.0-37.0)
RDW 15.3 H %
(11.5-14.5)
Immature Gran % 0.6 H %
(0-0.5)
Glucose 105 H mg/dl
(70-99)
Total Protein 6.1 L g/dl
(6.3-8.2)
Albumin 3.4 L g/dl
(3.5-5.0)
Ur Occult Blood Reflex Trace A
(Negative)
Urine Bacteria (Reflex) Few A
(Negative)
07/07/23 08:02
07/07/23 08:02
MDM/Problems Addressed
Differential Diagnosis Includes:
Fall and weakness. History of UTIs urinalysis pending. Unfortunately there is a palpable defect along the path of the quadricep tendon along of the right knee with an associated effusion. He is unable to straight leg raise against gravity.
Concern for repeat injury of the tendon versus fracture. X-rays pending. Will check labs. Patient is on Eliquis but there is no signs of head trauma and he is certain he did not hit his head. Considered head CT but not indicated at this time
*Critical Care Note
Total Time (30-74mins, 75-104mins- exclusive of procedures): Not Applicable
Update Note
Update Note:
X-ray demonstrates high riding patella on the right knee concerning for patellar tendon injury. This would be consistent with the clinical exam. X-ray left knee reviewed which is negative. Patient was placed in a knee immobilizer and call placed
into the patient's orthopedic team
Discussed with orthopedic surgeon of record. They have agreed to accept the patient. Waiting for bed from [facility]
ED Attending Note
-
Portions of this chart may have been created with voice recognition software.� Occasional wrong word or��sound alike� substitutions may have occurred due to the inherent limitations of voice recognition software.
Discharge Plan
Departure
Patient Disposition: [facility]
Date of Disposition: 07/07/23
Time of Disposition: 10:33
Patient with high blood pressure during this ER visit?: No
Discharge Problem:
Patellar tendon rupture
Prescriptions:
No Action
multivitamin Tablet
1 tab PO DAILY
atorvastatin 10 mg tablet
10 mg PO QPM
valsartan 80 mg tablet
80 mg PO DAILY
omeprazole 40 mg capsule,delayed release(DR/EC)
40 mg PO DAILY
tramadol 50 mg tablet
50 mg PO Q6H PRN (Reason: moderate pain)
Patient Comments:
05/09/2023: last filled 08/20/22, 28 tabs for 7 days from [facility]
acetaminophen 500 mg Tablet
1,000 mg PO Q6H PRN (Reason: mild pain)
ascorbic acid (vitamin C) [Vitamin C] 500 mg Tablet
500 mg PO DAILY
tamsulosin 0.4 mg capsule
0.4 mg PO QPM
oxybutynin chloride 5 mg tablet extended release 24hr
5 mg PO QPM
bumetanide 1 mg tablet
1 mg PO DAILY
metoprolol succinate 25 mg tablet extended release 24 hr
25 mg PO DAILY
cyclobenzaprine 5 mg tablet
5 mg PO BID PRN (Reason: muscle spasms)
desvenlafaxine succinate 100 mg tablet extended release 24 hr
100 mg PO DAILY
Myrbetriq 50 mg tablet extended release 24 hr
50 mg PO QPM
Eliquis 5 mg tablet
5 mg PO BID
cranberry
2 tab PO BID
Referrals:
Fran Mathis MD [Family Provider] -
Hospital Transfer
Other hospital: [facility]
I certify that the patient requires transfer: Yes
Discussed case with accepting physician: Hannah
Reason for transfer: continuity of care PCP
Interventions
Interventions:
*Risk Screen - Suicide Last Done: 07/07/23 06:24
*General Assessment Last Done: 07/07/23 06:24
*Neglect/Abuse Screening Last Done: 07/07/23 06:24
ED- Fall Risk Assessment Last Done: 07/07/23 13:16
*ED COVID-19 Vaccine History Last Done: 07/07/23 06:24
*Nursing Disposition Last Done: 07/07/23 13:16
ED-Musculoskeletal Assessment Last Done: 07/07/23 11:12
Discharge Date and Time
Discharge Date/Time: 07/07/23 13:18
Print Language: JAPANESE
[2023-07-07 08:09] LABS: % Basophils 0.3 % (0-2); % Eosinophils 1.7 % (0-6); % Immature Granulocytes 0.6 % (0-0.5); % Lymphocytes 25.9 % (20.5-51.1); % Monocytes 6.9 % (1.7-9.3); % Neutrophils 64.6 % (42.2-75.2); Absolute Eosinophils 0.1 10^3/uL (0-0.7); Absolute Lymphocytes 1.8 10^3/uL (1.2-3.4); Absolute Monocytes 0.5 10^3/uL (0.1-0.6); Absolute Neutrophils 4.5 10^3/uL (1.4-6.5); Hematocrit 31.5 % (39.0-52.0); Mean Corp Hgb Conc. 31.7 g/dL (33.0-37.0); Mean Corpuscular Hgb 23.6 pg (27.0-31.0); Mean Corpuscular Volume 74.5 fL (80.0-94.0); Mean Platelet Volume 9.4 fL (7.4-10.4); Nucleated Red Blood Cells % 0 % (-); Platelet Count 214 10^3/uL (130-400); Red Blood Cell Count 4.23 10^6/uL (4.70-6.10); Red Cell Dist. Width 15.3 % (11.5-14.5)
[2023-07-07 08:37] LABS: ALT (SGPT) 10 U/L (0-50); AST (SGOT) 21 U/L (17-59); Albumin 3.4 g/dl (3.5-5.0); Alkaline Phosphatase 78 U/L (38-126); Blood Urea Nitrogen 20 mg/dl (9-20); Calcium 9.2 mg/dl (8.4-10.2); Carbon Dioxide 26 mmol/L (22-30); Chloride 104 mmol/L (98-107); Estimated Creatinine Clearance 97 ml/min; Glucose 105 mg/dl (70-99); Potassium 4.2 mmol/L (3.5-5.1); Sodium 136 mmol/L (135-145); Total Bilirubin 0.6 mg/dl (0.2-1.3); Total Protein 6.1 g/dl (6.3-8.2); eGFR > 60.00
[2023-07-07 10:15] LABS: Urine Albumin Negative (Neg - Trace); Urine Bilirubin Negative (Negative); Urine Character Clear (Clear); Urine Color Yellow; Urine Glucose Negative (Negative); Urine Ketone Negative (Negative); Urine Leukocyte Negative (Negative); Urine Nitrite Negative (Negative); Urine Occult Blood Trace (Negative); Urine Urobilinogen Negative (Neg - 1+); Urine pH 6.5 (5.0-9.0)
[2023-07-07 10:28] LABS: Urine Bacteria Few (Negative); Urine Red Blood Cell 0-2 /HPF (0-2); Urine White Cell 0-2 /HPF (0-5)
== END 2023-07-07 13:18 | disposition short-term general hospital (02) ==
LOC: EMR 06:23
PROVIDERS: Physician Assistant; EMERGENCY PHYSICIAN Emergency Medicine; FAMILY PHYSICIAN Internal Medicine
DX: S76.111A Strain of right quadriceps muscle, fascia and tendon, initial encounter (principal); W18.39XA Other fall on same level, initial encounter; Z79.01 Long term (current) use of anticoagulants
CPT/HCPCS: 99283; 73564; 80053; 81003; 81015; 85025